=== PATIENT | female | born 1990 | race Caucasian/White ===

== ENCOUNTER 2017-10-21 17:28 | Emergency (ER) | payer BC ==
[~2017-10-21] VITALS: Ht 172.7 cm; Wt 61.2 kg
[2017-10-21 19:11] VITALS: BP 121/65
== END 2017-10-21 19:11 | disposition home or self-care (01) ==
LOC: M.ERS 17:28
DX: S81.851A Open bite, right lower leg, initial encounter (principal); S81.852A Open bite, left lower leg, initial encounter; Z88.1 Allergy status to other antibiotic agents; W54.0XXA Bitten by dog, initial encounter; Y93.89 Activity, other specified; Y92.89 Other specified places as the place of occurrence of the external cause; Y99.8 Other external cause status